=== PATIENT | male | born 1990 | race Caucasian/White ===

== ENCOUNTER 2021-06-01 12:23 | Emergency (ER) | payer OTHER ==
[~2021-06-01] VITALS: Ht 188 cm; Wt 90.7 kg
[2021-06-01] MEDS ORDERED: BACTRIM DS TAB1 EAC1 PO (13:26)
[2021-06-01 13:58] VITALS: BP 129/70
== END 2021-06-01 13:59 | disposition home or self-care (01) ==
LOC: M.ERS 12:23
DX: L03.317 Cellulitis of buttock (principal); Z20.822 Contact with and (suspected) exposure to COVID-19